=== PATIENT | female | born 1995 ===

== ENCOUNTER 2018-01-25 13:20 | Emergency (ER) | payer OTHER ==
[~2018-01-25] VITALS: Ht 160 cm; Wt 63.5 kg
[2018-01-25] MEDS ORDERED: TRAMADOL HCL50 M1 PO (13:57)
[2018-01-25] MEDS ORDERED: AMOXICILLIN875 M1 PO (13:57)
[2018-01-25] MEDS ORDERED: IBUPROFEN800 M1 PO (13:57)
--- NOTE | 2018-01-25 13:58 | ED THROAT/DENTAL COMPLAINT ---
History of Present Illness General Chief Complaint: General Adult Stated Complaint: MIGRAINES,DIHARREA,?INFECTED TOOTH Source: patient Exam Limitations: no limitations Vital Signs & Intake/Output Vital Signs & Intake/Output Vital Signs Date Time Temp Pulse Resp B/P B/P Pulse O2 O2 Flow FiO2 Mean Ox Delivery Rate 01/25 1347 98.2 72 16 107/71 98 Room Air Room Air Allergies Coded Allergies: peach (Severe, ANAPHYLAXIS 01/25/18) plum (Severe, ANAPHYLAXIS 01/25/18) strawberry (Severe, ANAPHYLAXIS 01/25/18) Uncoded Allergies: BERRIES (Severe, ANAPHYLAXIS 01/25/18) Reconcile Medications Amoxicillin 875 MG TABLET 1 TAB PO BID TOOTH PAIN Ibuprofen 800 MG TABLET 1 TAB PO TID PAIN Tramadol HCl 50 MG TABLET 1-2 TAB PO BIDP PRN PAIN Triage Note: PT TO TRIAGE WITH PAIN OVER LEFT CHEEK AND EYE. PT STATES IT MIGHT BE RELATED TO A TOOTH SHE HAD WORK DONE LAST MONTH. DENIES FEVERS Triage Nurses Notes Reviewed? yes Onset: Abrupt Duration: day(s):, constant Timing: recent history Injury Environment: home : No Patient currently breastfeeds: No HPI: 22-year-old female comes into the emergency room for further evaluation of tooth pain. Patient reports that she had a crown placed recently a couple months ago and had a root canal. She reports that she has had increased pain to her left upper jaw area radiating to her ear. Denies any fever chills vomiting. This morning incidentally she had some episodes of diarrhea with some cramping abdomen. The abdominal pain is gone but she reports some mild episodes of diarrhea so. She reports that she gets diarrhea when she gets significant pain at times. Denies any fever vomiting. Past History Travel History Traveled to [place] past 21 day No Medical History Any Pertinent Medical History? see below for history Neurological: NONE EENT: NONE Cardiovascular: NONE Respiratory: NONE Gastrointestinal: NONE Hepatic: NONE Renal: NONE Musculoskeletal: NONE Psychiatric: NONE Endocrine: NONE Blood Disorders: NONE Cancer(s): NONE WEB PROJECT MANAGER/Reproductive: NONE Surgical History Surgical History: non-contributory Psychosocial History What is your primary language Danish Tobacco Use: Never used ETOH Use: denies use Illicit Drug Use: denies illicit drug use Family History Hx Contributory? No Review of Systems Review of Systems Constitutional: Reports: no symptoms. EENTM: Reports: see HPI. Respiratory: Reports: no symptoms. Cardiovascular: Reports: no symptoms. GI: Reports: see HPI. Genitourinary: Reports: no symptoms. Musculoskeletal: Reports: no symptoms. Skin: Reports: no symptoms. Neurological/Psychological: Reports: no symptoms. Hematologic/Endocrine: Reports: no symptoms. Immunologic/Allergic: Reports: no symptoms. All Other Systems: Reviewed and Negative Physical Exam Physical Exam General Appearance: well developed/nourished, no apparent distress, alert, awake Head: atraumatic, normal appearance Eyes: Bilateral: normal appearance. Ears: Bilateral: canal normal, Tympanic normal. Nose: normal inspection Mouth/Throat: normal mouth inspection, pharynx normal, dental tenderness Neck: normal inspection Cardiovascular/Respiratory: no respiratory distress Back: normal inspection Neurologic/Psych: awake, alert Skin: intact, normal color Core Measures ACS in differential dx? No Sepsis Present: No Sepsis Focused Exam Completed? No Progress Differential Diagnosis: aspirated tooth, carious tooth, Ludwigs angina, odontogenic abscess, isaura-tonsillar abscess, pharyngeal for. body, stomatitis/ gingivitis, strep pharyngitis, tooth fracture, viral syndrome Plan of Care: see below Comments: 01/25/2018 3:29:42 PM Patient clinically looks well. She is in no apparent distress. She was offered further evaluation with blood work but declined. She is here primarily for her tooth pain. No clinical signs of abscess at this time. Patient was started on oral antibiotics and given pain medication and referred back to her dentist. She was told that she has any return of abdominal pain and vomiting fever or any persistent GI symptoms she should come back or follow-up with her doctor for reevaluation. She currently denies any abdominal pain. Departure Departure Disposition: HOME OR SELF CARE Condition: Stable Clinical Impression Primary Impression: Pain, dental Secondary Impressions: Diarrhea Referrals: Unknown (PCP/Family) Additional Instructions: Take amoxicillin, ibuprofen, tramadol for pain. Follow-up with dentist. Return if any concerns worsening symptoms. Please go over all results of today's visit with your primary care doctor. Contact your primary care doctor to let them know you were here in the emergency room. There may be nonspecific findings which may not be related to your visit today here in the emergency room but may require further evaluation and chronic monitoring by your primary care doctor. If you had a laceration today the chance of foreign body always remains. You should follow-up with your primary care doctor for recheck in 3-5 days for a wound check. If you had an x-ray done there is a chance that a fracture could have been missed on initial read and you should follow-up with your primary care doctor for repeat x-rays if symptoms persist. If your blood pressure was elevated here in the emergency room please have rechecked by [facility] primary care doctor within the next 48. If you were prescribed a narcotic here in the emergency room or any type of controlled substances you're not allowed to drive while taking this medication or operate any type of heavy machinery. Narcotics can make you feel lightheaded dizziness nausea and can cause constipation. You may need to curing pickling packer a stool softener. Thank you for choosing [facility] emergency room. Please return to the emergency room immediately if you have any other concerns worsening of symptoms. Departure Forms: Customer Survey General Discharge Information Prescriptions: Current Visit Scripts Amoxicillin 1 TAB PO BID #20 TAB Ibuprofen 1 TAB PO TID #30 TAB Tramadol HCl 1-2 TAB PO BIDP PRN PAIN #15 TAB
== END 2018-01-25 14:09 ==
LOC: ERH 13:20
DX: K08.89 Other specified disorders of teeth and supporting structures (principal); R19.7 Diarrhea, unspecified